=== PATIENT | female | born 1955 | race Caucasian/White ===

== ENCOUNTER → 2021-02-25 09:39 | Outpatient (CLI) | payer OTHER, SELFPAY ==
--- NOTE | ~2021-02-25 | XR_ITS ---
EXAMINATION: XR chest 2V DATE: 02/25/2021 09:57 INDICATION: Chronic obstructive pulmonary disease. Wheezing and cough. TECHNIQUE: Frontal and lateral views of the chest were obtained. COMPARISON: Chest 2 views 01/31/2015 FINDINGS: There is mild atelectasis in left lower lung zone. There is mild scarring at left lung apex . No pleural effusion or pneumothorax. The heart size is normal. IMPRESSION: 1. Mild atelectasis in left lower lung zone and mild scarring at left lung apex. Reviewed, dictated and finalized at location A. IMPRESSION: 1. Mild atelectasis in left lower lung zone and mild scarring at left lung apex .
== END ==
PROVIDERS: PCP Family Medicine; Visit Provider Family Medicine
DX: J44.9 Chronic obstructive pulmonary disease, unspecified (principal); R06.02 Shortness of breath; J98.11 Atelectasis
CPT/HCPCS: 71046

== ENCOUNTER 2021-03-02 08:08 | Outpatient (CLI) | payer OTHER, SELFPAY ==
--- NOTE | 2021-03-02 16:09 | P.PCNPFT_ITS ---
PFT Interpretation This is a pulmonary function test with pre and post-bronchodilator spirometry, plethysmography and diffusing capacity. The test was performed and results interpreted in accordance with the 2019 and 2005 ATS/ERS Task Force guidelines respectively using the Global Lung Function Initiative-2012 reference equations. Patient demonstrated good effort and c ooperation. Reproducibility criteria were met. The quality of the pre bronchodilator spirometry maneuver was Grade A and post bronchodilator spirometry maneuver was Grade A. Findings: Spirometry: There is decreased maximal expiratory airflow at all lung volumes with a mildly concave expiratory flow tracing. The contour of the inspiratory flow tracing is normal. The pre bronchodilator FVC is 2.72 L, 92% predicted. The pre bronchodilator FEV1 is 1.87 L, 80% predicted. The FEV1: FVC ratio is 69%. The post bronchodilator FVC is 2.83 L, representing a 4% increase. The post bronchodilator FEV1 is 1.96 L, representing a 5% increase. Plethysmography: The total lung capacity is 5.40 L, 110% predicted. Functional residual capacity is 3.15 L, 114% predicted. The residual volume is 2.67 L, 134% predicted. Diffusing capacity: The absolute diffusion capacity is 15.9, 76% predicted. The diffusing capacity corrected for alveolar volume is 3.72, 84% predicted. When compared to the prior pulmonary function test in our laboratory on 01/31/2015 in which no bronchodilator was given. The FEV1 is unchanged from 2.62 L to 2.72 L. The FEV1 is unchanged from 1.91 L to 1.87 L. The total lung capacity is unchanged from 5.34 L to 5.40 L. The functional residual capacity is unchanged from 3.29 L to 3.15 L. The residual volume is unchanged from 2.72 L to 2.67 L. The absolute diffusion capacity is unchanged from 15.0 to 15.9. The diffusing capacity corrected for alveolar volume is unchanged from 3.31 to 3.72. Impression: There is a mild obstructive abnormality with a normal FEV1 and without a significant improvement after inhaling a single dose of albuterol. The lung volumes are normal. The diffusing capacity is normal. In comparison to the prior pulmonary function tests on 01/31/2015 there has been no significant change in FVC, FEV1, total lung capacity, functional residual capacity, residual volume, absolute diffusion capacity or diffusing capacity corrected for alveolar volume. Clinical correlation is recommended. PFT Procedure Performed PFT Procedure Performed Spirometry with Pre/Post Bronchodilator Plethysmography (Lung Vol) Diffusing Cap (DLCO)
== END 2021-03-02 08:09 | disposition home or self-care (01) ==
PROVIDERS: PCP Family Medicine; Visit Provider Family Medicine
DX: J44.9 Chronic obstructive pulmonary disease, unspecified (principal); F17.210 Nicotine dependence, cigarettes, uncomplicated; R94.2 Abnormal results of pulmonary function studies
CPT/HCPCS: 94060; 94726; 94729

== ENCOUNTER 2022-06-23 13:50 | Outpatient (CLI) | payer MEDICARE, SELFPAY ==
--- NOTE | ~2022-06-23 | US_ITS ---
US arterial ankle brachial ind INDICATION: High cholesterol. Smoking history. Numbness in the legs. TECHNIQUE: Segmental pressures and plethysmographic and Doppler waveforms of the brachial and lower e xtremity arteries were obtained. COMPARISON: None. FINDINGS: Right and left brachial artery pressures of 119 mm Hg and 119 mm Hg, respectively, are concordant (no rmal difference <= 30 mmHg). The right ankle-brachial index (ROSA MARIA) is 1.09 (normal >= 0.9-1.0). The right great toe-brachial index (TBI) is 0.69 (normal >= 0.60). The left ROSA MARIA is 1.07. The left TBI is 0.45. IMPRESSION: 1. Diminished left toe brachial index measuring 0.45, consistent with peripheral arterial disease. 2: Normal right ankle and toe brachial indices. Reviewed, dictated and finalized at location A. IMPRESSION: 1. Diminished left toe brachial index measuring 0.45, consistent with periphera l arterial disease. 2: Normal right ankle and toe brachial indices.
== END 2022-06-23 13:51 | disposition home or self-care (01) ==
PROVIDERS: PCP Family Medicine; Visit Provider Family Medicine
DX: R09.89 Other specified symptoms and signs involving the circulatory and respiratory systems (principal); R29.898 Other symptoms and signs involving the musculoskeletal system; F17.200 Nicotine dependence, unspecified, uncomplicated
CPT/HCPCS: 93922

== ENCOUNTER 2022-08-10 08:53 | Outpatient (CLI) | payer MEDICARE, SELFPAY ==
--- NOTE | 2022-08-10 11:00 | NEURO_ITS ---
Impression: # Complains of numbness and cramps in lower extremities. # Normal nerve conduction study including F-waves. # Needle/EMG exam abnormal with neurogenic changes in the muscles though no fibrillation. # Clinical correlation recommended, findings suggestive of higher involvement. Nerve Conduction Studies Anti Sensory Summary Table Stim Site NR Peak (ms) P-T Amp (?V) Site1 Site2 Delta-P (ms) Dist (cm) Nish (m/s) Left Sup Fibular Anti Sensory (Ant Lat Mall) 14 cm 3.8 8.4 14 cm Ant Lat Mall 3.8 16.0 42 Right Sup Fibular Anti Sensory (Ant Lat Mall) 14 cm 4.0 3.8 14 cm Ant Lat Mall 4.0 16.0 40 Left Sural Anti Sensory (Lat Mall) Calf 3.9 8.7 Calf Lat Mall 3.9 16.0 41 Right Sural Anti Sensory (Lat Mall) Calf 4.3 6.3 Calf Lat Mall 4.3 16.0 37 Motor Summary Table Stim Site NR Onset (ms) O-P Amp (mV) Site1 Site2 Delta-0 (ms) Dist (cm) Nish (m/s) Left Peroneal Motor (Vastus Med) Ankle 5.0 0.4 Popit Ankle 7.6 38.0 50 Popit 12.6 0.4 Right Peroneal Motor (Vastus Med) Ankle 4.2 0.6 Popit Ankle 8.6 37.0 43 Popit 12.8 0.4 Left Tibial Motor (Abd Gonzalez Brev) Ankle 4.7 1.7 Knee Ankle 8.8 41.0 47 Knee 13.5 1.2 Right Tibial Motor (Abd Gonzalez Brev) Ankle 4.9 1.8 Knee Ankle 8.7 39.0 45 Knee 13.6 1.6 F Wave Studies NR F-Lat (ms) L-R F-Lat (ms) Left Peroneal (Mrkrs) (EDB) 49.94 0.82 Right Peroneal (Mrkrs) Run #1 (EDB) 40.00 9.94 Right Peroneal (Mrkrs) Run #2 (EDB) 50.76 0.82 Left Tibial (Mrkrs) (Abd Hallucis) 51.47 0.52 Right Tibial (Mrkrs) (Abd Hallucis) 50.95 0.52 EMG Side Muscle Nerve Root Ins Act Fibs Amp Dur Recrt Comment Right AntTibialis Dp Br Fibular L4-5 Nml Nml Nml >12ms Reduced Right Gastroc Tibial S1-2 Nml Nml Nml >12ms Reduced Right Fibularis Long Sup Br Fibular L5-S1 Nml Nml Nml Nml Nml Right Flex Dig Long Tibial L5-S2 Nml Nml Nml Nml Nml Right Ext Dig Brev Dp Br Fibular L5, S1 Nml Nml Nml >12ms Reduced Left AntTibialis Dp Br Fibular L4-5 Nml Nml Nml >12ms Reduced Left Gastroc Tibial S1-2 Nml Nml Nml >12ms Reduced Left Fibularis Long Sup Br Fibular L5-S1 Nml Nml Nml Nml Nml Left Flex Dig Long Tibial L5-S2 Nml Nml Nml Nml Nml Left Ext Dig Brev Dp Br Fibular L5, S1 Nml Nml Nml >12ms Reduced Right QuadratusFem QuadFemoris L4-5, S1 Nml Nml Nml >12ms Reduced Left QuadratusFem QuadFemoris L4-5, S1 Nml Nml Nml >12ms Reduced MTDD
== END 2022-08-10 08:54 | disposition home or self-care (01) ==
PROVIDERS: PCP Family Medicine; Visit Provider Family Medicine
DX: G62.9 Polyneuropathy, unspecified (principal)
CPT/HCPCS: 95886; 95910

== ENCOUNTER → 2022-08-11 09:32 | Outpatient (CLI) | payer MEDICARE, SELFPAY ==
--- NOTE | ~2022-08-11 | XR_ITS ---
XR lumbar spine min 4V DATE: 08/11/2022 09:46 INDICATION: Unsteady gait, paresthesia TECHNIQUE: AP, lateral, coned lateral lumbosacral and bilateral oblique views COMPARISON: None FINDINGS: . There is mild degenerative disc disease at the lumbar interspaces and mild/moderate degen erative disc disease at L5-S1. No lumbar spine fracture or bone destruction is evident. The lumbar pedicles are intact. The sacroili ac joints appear normal. IMPRESSION: Grade 2 anterolisthesis at L5-S1 Mild to moderate degenerative disc disease Reviewed, dictated and finalized at location B.
== END ==
PROVIDERS: PCP Family Medicine; Visit Provider Family Medicine
DX: G95.9 Disease of spinal cord, unspecified (principal); M51.37 Other intervertebral disc degeneration, lumbosacral region
CPT/HCPCS: 72110

== ENCOUNTER 2022-08-21 12:46 | Outpatient (CLI) | payer MEDICARE, SELFPAY ==
--- NOTE | ~2022-08-21 | MR_ITS ---
EXAMINATION: MR lumbar spine wo con DATE: 08/21/2022 13:27 INDICATION: Bilateral leg weakness. Bilateral foot drop. TECHNIQUE: Magnetic resonance imaging (MRI) of the lumbar spine was performed without intravenous con trast. Sequences included sagittal T2-weighted FSE, sagittal T2-weighted FS FSE, sagittal T1-weighted FSE, and axial T2-weighted FSE. COMPARISON: Lumbar spine radiographs 08/11/2022 FINDINGS: There is 6 degrees levocurvature of lumbar spine. There is 7 mm anterolisthesis of L5 on S1 . Vertebral body heights are normal. There is mildly decreased disc height at L4-L5 and moderately de creased disc height at L5-S1 with endplate remodeling. The distal spinal cord signal intensity is nor mal. The conus medullaris is at L1. The following disc levels are specifically discussed: L1-L2: There is a central protrusion. There is mild bilateral facet joint osteoarthritis. There is no neural foraminal stenosis. There is mild central canal stenosis. L2-L3: The disc is bulging and has an annular fissure. There is mild bilateral facet joint osteoarthr itis. There is no neural foraminal stenosis. There is mild central canal stenosis. L3-L4: The disc does not extend beyond the endplate margin. There is moderate right and mild left fac et joint osteoarthritis. There is no neural foraminal stenosis. There is no central canal stenosis. L4-L5: The disc is bulging. There is severe bilateral facet joint osteoarthritis. There is mild bilat eral neural foraminal stenosis. There is mild central canal stenosis. L5-S1: The disc does not extend beyond the endplate margins. There is severe bilateral facet joint os teoarthritis. There is mild bilateral neural foraminal stenosis. There is no central canal stenosis. IMPRESSION: 1. Moderate lower lumbar spondylosis. Reviewed, dictated and finalized at location B.
== END 2022-08-21 12:47 | disposition home or self-care (01) ==
PROVIDERS: PCP Family Medicine; Visit Provider Family Medicine
DX: G95.9 Disease of spinal cord, unspecified (principal); M47.896 Other spondylosis, lumbar region
CPT/HCPCS: 72148

== ENCOUNTER → 2023-02-01 09:49 | Outpatient (CLI) | payer MEDICARE, SELFPAY ==
--- NOTE | ~2023-02-01 | XR_ITS ---
EXAMINATION: XR toe 5th LT min 2V DATE: 02/01/2023 10:03 INDICATION: Left fifth toe injury. TECHNIQUE: 4 views of left fifth toe were obtained. COMPARISON: None. FINDINGS: Bone alignment is normal. No acute fracture. There is mild osteoarthritis of fifth distal i nterphalangeal joint IMPRESSION: 1. No acute fracture. Reviewed, dictated and finalized at location A. IMPRESSION: 1. No acute fracture.
== END ==
PROVIDERS: PCP Family Medicine; Visit Provider Nurse Practitioner Family
DX: L03.032 Cellulitis of left toe (principal)
CPT/HCPCS: 73660

== ENCOUNTER 2024-10-04 11:37 | Outpatient (CLI) | payer MEDICARE, SELFPAY ==
--- NOTE | ~2024-10-04 | XR_ITS ---
Right Shoulder Technique: AP and scapular Y views were obtained. Clinical History: Pain Findings: No fracture or dislocation is seen. Osseous alignment is anatomic. The glenohumeral and acr omioclavicular joint spaces are preserved. Soft tissues are unremarkable. Impression: Unremarkable right shoulder radiographs. Reviewed, dictated and finalized at [facility]. AL SHOE INSPECTOR Impression: Unremarkable right shoulder radiographs.
== END 2024-10-04 11:38 | disposition home or self-care (01) ==
LOC: GOSHIMG 11:39
PROVIDERS: PCP Family Medicine; Visit Provider Family Medicine
DX: M25.511 Pain in right shoulder (principal)
CPT/HCPCS: 73030

== ENCOUNTER 2025-07-26 02:36 | Day surgery (SDC) | payer MEDICARE, SELFPAY ==
[2025-07-15 12:58] VITALS: BMI 26.2
--- OUTSIDE RECORDS SUMMARY | 2025-07-26 02:39 | XMS_ITS | Clinical Summary ---
Author Organization [facility] Address [address] [place] [address] Care Team Providers Care Fence Setter Name Role Phone Unavailable Primary Care Provider Unavailabl e Social History Tobacco Use Types Packs/Day Years Used Date Smoking Tobacco: Never Assessed Comments Unknown Sex and Gender Information Value Date Recorded Sex Assigned at Not on file Legal Sex Female 7:23 PM EXTR[employer] REPAIR[employer] Gender Identity Not on file Sexual Orientation Not on file Plan of Treatment Health Maintenance Due Date Last Done Comments Colorectal Cancer Screening Colonoscopy (10 Years) 1957 Hepatitis C 1975 DTaP, Tdap and Td Vaccines ( 1 - Tdap) 1976 Mammogram Screening 1997 Pneumococcal Vaccine: 50+ Ye ars (1 of 1 - PCV) 2007 Zoster Vaccines (1 of 2) 2007 Dexa Scan (General) 2022 COVID-19 Vaccine ( - 2023-2 5 season) 2024 RSV Immunization or 60+ Years (1 - 1-dose 75+ series) 2032 Meningococcal B Vaccine Aged Out No l onger eligible based on patient's age to complete this topic Meningococcal Vaccine Aged Out No gustavo eusebia eligible based on patient's age to complete this topic RSV Immunizations Under 20 Months Aged Out No longer eligible based on patient's age to complete this topic
--- OUTSIDE RECORDS SUMMARY | 2025-07-26 02:39 | XMS_ITS | Clinical Summary ---
Author Organization [facility] [employer] Address [address] [place] [address] Care Team Providers Care Director Of Front Office Name Role Phone Cory Turner MD Primary Care Provider [phone]- [phone] Source Comments [facility] [employer],non-owned Affiliates and Associated Physician Practices is amultiple site organization consisting of ambulatory clinics and hospital sitesin [place], [place], [place] and [place]. This disclosure is being madepursuant to the Care Everywhere program and may not contain all information available regarding this patient. Last updated 18.[facility] [employer] Allergies Active Allergy Reactions Criticality Noted Date Comments Cephalosporins 05/02/2017 Medications * Be aware that medications may not be up to date on this document. Alwaysverify current medications with the patient. benzonatate (TESSALON) 200 MG capsuleIndicatio ns:Acute upper respiratory infection Take 1 Cap by mouth 3 times daily as needed for Cough 30 Cap 05/02/2017 Active Social History Tobacco Use Types Packs/Day Years Used Date Smoking Tobacco: Former Comments Unknown Sex and Gender Information Value Date Recorded Sex Assigned at Not on file Legal Sex Female 10:41 AM CDT Gender Identity Not on file Sexual Orientation Not on file Last Filed Vital Signs Vital Sign Reading Time Taken Comments Blood Pressure 130/76 05/02/2017 12:04 PM CDT Pulse 89 05/02/2017 12:04 PM CDT Temperature 37.1 C (98.7 F) 05/02/2017 12:04 PM CDT Respiratory Rate 16 05/02/2017 12:04 PM CDT Oxygen Saturation - - Inhaled Oxygen Concentration - - Weight 66.2 kg (146 lb) 05/02/2017 12:04 PM CDT Height 160 cm (5' 3) 05/02/2017 12:04 PM CDT Body Mass Index 25.86 05/02/2017 12:04 PM CDT Plan of Treatment Health Maintenance Due Date Last Done Comments BONE DENSITY TESTING 1957 COLOGUARD (AGES 45-75) - COL ON CA SCREENING 1957 COLON MONITORING 1957 COLONOSCOPY - COLON CA SCREENING 1957 CT COLONOGRAPHY - COLON CA SCREENING 1957 Colorectal Cancer Screening 1957 FIT - COLON CA SCREENING 1957 FLEX SIG - COLON CA SCREENING 1957 LIPID TESTING 1957 MAMMOGRAM 1957 HEPATITIS C SCREENING 06/30/1975 DTAP/TDAP/TD VACCINES (1 - Tdap) 1976 PNEUMOCOCCAL VACCINE 50+ (1 of 1 - PCV) 2007 ZOSTER VACCINE (1 of 2) 2007 DEPRESSION SCREENING 11/21/2024 COVID-19 VACCINE (1 - 2023-2 5 season) 2025 INFLUENZA VACCINE (#1) 2025 Respiratory Syncytial Virus (RSV) Vaccine Pt: or over 60 yrs (1 - 1-dose 75+ series) 2032 HEPATITIS B VACCINE Aged Out No longe r eligible based on patient's age to complete this topic HIB VACCINE Aged Out No longer eligi ble based on patient's age to complete this topic HPV VACCINE Aged Out No longer eligi ble based on patient's age to complete this topic MENINGOCOCCAL (Group B) VACC INE SHARED DECISION-MAKING Aged Out No longer eligibl e based on patient's age to complete this topic MENINGOCOCCAL GROUPS A/C/Y/W VACCINE Aged Out No longer eligible b ased on patient's age to complete this topic Insurance Care Teams Director Of Front Office Relationship Specialty Start Date End Date Cory Turner MD [address] [place] [address] [phone] PCP - General Family Medicine 05/02/17
--- OUTSIDE RECORDS SUMMARY | 2025-07-26 02:39 | XMS_ITS | Clinical Summary ---
Author Organization [facility] Address [address] [place] [address] Phone Care Team Providers Care Decorator Store Name Role Phone Cory Turner MD Primary Care Provider [phone]- [phone] Allergies Active Allergy Reactions Criticality Noted Date Comments Cephalexin Anaphylaxis High 06/27/2016 Cephalosporins Hives,Unknown Medium 05/02/2017 Medications zolpidem (AMBIEN) 10 MG Tablet Take 10 mg by mouth nightly as needed. Active fluticasone (FLONASE) 50 MCG/ACT SuspensionIndic ations:Non-recu rrent acute serous otitis media of both ears 1-2 Sprays by Nasal route daily. Use in each nostril as directed. 15.8 mL 1 Active Additional Information Patient not taking.Reported on 04/13/2022 venlafaxine (EFFEXOR-XR) 37.5 MG CAPSULE SR 24 HR 2 Active Anoro Ellipta 62.5-25 MCG/INH AEROSOL POWDER, BREATH ACTIVATED 2 Active alendronate (FOSAMAX) 35 MG Tablet 2 Active triamcinolone (KENALOG) 0.1 % Cream 2 Active Multiple Vitamin (MULTI-VITAMIN PO) Take by mouth daily. Active CALCIUM PO Take by mouth daily. Active fluticasone (FLONASE) 50 MCG/ACT SuspensionIndic ations:Head congestion 1-2 Sprays by Nasal route daily. Use in each nostril as directed. 16 g 2 Active Additional Information Patient not taking.Reported on 01/20/2023 methylPREDNISol one (Medrol) 4 MG Tablet Therapy PackIndications :Bronchitis Use as per instructions on package. 21 Tablet 2 Active Additional Information Patient not taking.Reported on 01/20/2023 albuterol (ProAir HFA) 108 (90 Base) MCG/ACT Aerosol SolutionIndicat ions:Bronchitis take 2 Puffs by inhalation every 4 hours as needed for Wheezing or Cough. 18 g 2 Active Additional Information Patient not taking.Reported on 01/20/2023 busPIRone (BUSPAR) 10 MG Tablet 3 Active riluzole (RILUTEK) 50 MG Tablet TAKE 1 TABLET BY MOUTH EVERY 12 HOURS 3 Active Relyvrio 3-1 g Pack 3 Active atorvastatin (LIPITOR) 40 MG Tablet Take 1 Tablet by mouth daily. 90 Tablet 3 4 Active Active Problems No known active problems Immunizations Immunization Administration Dates Next Due Hepatitis A Vaccine 02/05/2021 Influenza Vaccine, Quadrivalent, PF 11/2021,08/12/2020,08/23/2018,2016 Influenza, Injectable, Mdck,quadrivalent,with Preservative 09/11/2019 Influenza, Seasonal, Injecta ble, Undefined 10/27/2015,10/02/2014,08/22/2013 Pneumococcal Vaccine - 13 Valent 12/08/2017 TDAP Vaccine 12/08/2017 Social History Tobacco Use Types Packs/Day Years Used Date Smoking Tobacco: Every Day Cigarettes 0.5 40 Smokeless Tobacco: Never Tobacco Cessation:Ready to Q uit: Not Asked; Counseling Given: Not Answered Alcohol Use Standard Drinks/Week Comments Not Currently 0 (1 standard drink = 0.6 oz pur e alcohol) social Comments No Sex and Gender Information Value Date Recorded Sex Assigned at Not on file Legal Sex Female 6:15 PM CDT Gender Identity Not on file Sexual Orientation Not on file Last Filed Vital Signs Vital Sign Reading Time Taken Comments Blood Pressure 148/72 09/24/2023 2:43 PM CDT Pulse 110 09/24/2023 2:43 PM CDT Temperature 36.7 C (98.1 F) 09/24/2023 2:43 PM CDT Respiratory Rate 16 09/24/2023 2:43 PM CDT Oxygen Saturation 93% 09/24/2023 2:43 PM CDT Inhaled Oxygen Concentration - - Weight 62.6 kg (138 lb) 02/28/2023 1:32 PM CDT Height 160 cm (5' 3) 02/28/2023 1:32 PM CDT Body Mass Index 24.45 02/28/2023 1:32 PM CDT Plan of Treatment Health Maintenance Due Date Last Done Comments DEXA Bone Density 1957 Hepatitis C Virus (HCV) Screening 1957 Mammogram 1957 Cologuard 2002 Colonoscopy 2002 Colorectal Cancer Screening 2002 Immunochemical Fecal Occult Blood 2002 Zoster Immunization (1 of 2) 2007 Pneumococcal Immunization (50+ years) (2 of 2 - PPSV23, PCV20, or PCV21) 02/02/2018 12/08/2017 Influenza Immunization (#1) 2025 02/0 11/2021, 08/12/2020, 09/11/2019, Additional history exists SARS-COV-2 Immunization ( season) 2025 12/22/2021, 01/12/2021 Td Immunization Every 10 Years (Adults With 1 Tdap) 12/08/2027 12/08/2017 Respiratory Syncytial Virus (RSV) Immunization (Adult) (1 - 1-dose 75+ series) 2032 DTaP/Tdap/Td Immunization Discontinued 12/08/2017 Pneumococcal Immunization Combined Discontinued 12/08/2017 Hepatitis B Immunization Aged Out No longer eligible based on patient's age to complete this topic Human Papillomavirus (HPV) Immunization Aged Out No longer eligible based on patient's age to complete this topic Meningococcal Immunization (ACWY) Aged Out No longer eligible based on patient's age to complete this topic Rotavirus Immunization Aged Out No lo nger eligible based on patient's age to complete this topic Insurance MEDICARE C [employer] Care Teams Decorator Store Relationship Specialty Start Date End Date Cory Turner MD [address] [place] [id number] PCP - General Family Medicine 06/27/16
--- OUTSIDE RECORDS SUMMARY | 2025-07-26 02:39 | XMS_ITS | Clinical Summary ---
Author Organization [facility] Office Center Address [address] [place] [address] Care Team Providers Care Bow Rehairer Name Role Phone Gregory Browning MD Unavailable [phone] Yadira Turner MD Primary Care Provider + Allergies Active Allergy Reactions Criticality Noted Date Comments Cephalosporins Unknown 05/02/2017 Medications alendronate (FOSAMAX) 35 mg tablet 03/01/2022 Active umeclidinium-vi lanteroL (Anoro Ellipta) 62.5-25 mcg/actuation blister with device 01/22/2022 Active zolpidem (AMBIEN) 10 mg tablet zolpidem 10 mg tablet Active atorvastatin (LIPITOR) 10 mg tablet Take 1 tablet (10 mg total) by mouth daily Active busPIRone (BUSPAR) 10 mg tablet 02/01/2023 Active clindamycin (CLEOCIN) 300 mg capsule Take 1 capsule (300 mg total) by mouth 3 (three) times a day 02/10/2023 Active mupirocin (BACTROBAN) 2 % ointment 02/01/2023 Active sod phenylbutyrat-t aurursodiol (Relyvrio) 3-1 gram powder in packetIndicatio ns:ALS (amyotrophic lateral sclerosis) (HCC) Take 1 packet by mouth 2 (two) times a day 60 packet 11 12/22/2023 Active hydroCHLOROthia zide (HYDRODIURIL) 12.5 mg tablet TAKE 1 TABLET BY MOUTH EVERY DAY NEEDED FOR SWELLING 12/19/2023 Active venlafaxine XR (EFFEXOR-XR) 75 mg 24 hr capsuleIndicati ons:ALS (amyotrophic lateral sclerosis) (HCC) TAKE 1 CAPSULE BY MOUTH EVERY DAY 90 capsule 3 12/05/2024 Active Trelegy Ellipta 100-62.5-25 mcg inhaler 1 puff daily 03/17/2025 Active gabapentin (NEURONTIN) 100 mg capsuleIndicati ons:Essential Tremor Take 2 capsules (200 mg total) by mouth 3 (three) times a day 540 capsule 3 06/17/2025 06/17/20 26 Active riluzole (RILUTEK) 50 mg tabletIndicatio ns:ALS (amyotrophic lateral sclerosis) (HCC) TAKE 1 TABLET BY MOUTH EVERY 12 HOURS. 180 tablet 2 06/24/2025 Active Hospital, Clinic, or Other Facility Administered Medication Ordered Dose Route Frequency Start Date End Date Status [facility] pridopidine (/EAP2) capsule 45 mgIndications:Patient in clinical research study 45 mg oral Daily 07/30/2024 Active [facility] pridopidine (/EAP2) capsule 45 mgIndications:Patient in clinical research study 45 mg oral 2 times daily 02/26/2025 08/13/2025 Active Active Problems Problem Noted Date Diagnosed Date Venous congestion 12/30/2023 Assessment & Plan (12/30/2023 10:44 AM AUTO MACHINIST): Impression: Patient has discoloration to the toes of bilateral feet while in dependent position. Patient underwent ROSA MARIA and was found to have triphasic waveforms to bilateral lower extremities. Plan: Reassured patient she is not at risk for limb threatening with venous congestion. -recommend patient to elevate lower extremities to assist with blood return. -patient to follow-up on an as-needed basis. Other hyperlipidemia 12/30/2023 Assessment & Plan (12/30/2023 10:45 AM AUTO MACHINIST): Impression: Chronic and stable. Plan: Continue atorvastatin. Primary hypertension 12/30/2023 Assessment & Plan (12/30/2023 10:44 AM AUTO MACHINIST): Impression: Chronic and stable. Plan: Continue hydrochlorothiazide ALS (amyotrophic lateral sclerosis) 12/30/2023 Assessment & Plan (12/30/2023 10:45 AM AUTO MACHINIST): Impression: Patient was recently diagnosed with ALS. She has foot drop to bilateral feet and utilizes braces bilaterally. Plan: Continue recommendations as per PCP. Pain in both lower legs 07/23/2022 Assessment & Plan (07/23/2022 1:04 PM CDT): Impression: Patient with vague complaint of lower extremity pain, unsteady gait and weakness not consistent with an underlying arterial etiology. Arterial Doppler studies revealed normal blood flow both lower extremities. Plan: No further vascular surgical workup per intervention needed at this time. Recommend follow-up with her PCP to further discuss her complaint. Patient to follow up on as-needed basis. Abdominal pain 07/07/2022 Weakness Encounters Date Type Department Care Team Description 06/10/2025 Orders Only [facility] Scanning, Provider from Last 3 Months Immunizations Immunization Administration Dates Next Due Hep A, Adult 02/05/2021 Influenza, Quadrivalent, Cintia l Culture-based MDCK, Antibiotic Free, Intramuscular 09/11/2019 Influenza, Quadrivalent, Spl it, Preservative Free, Intramuscular 12/22/2021,08/12/2020,08/23/2018,09/14 Influenza, Trivalent, IM (MDV) 10/27/2015,2013,08/22/2013 Pfizer SARS-CoV-2 Monovalent Vaccination (12+ Yrs) PURPLE 01/12/2021 Pneumococcal Conjugate PCV 13 12/08/2017 Tdap 12/08/2017 Surgical History Surgery Date Site/Laterality Comments NEPHRECTOMY Medical History Medical History Date Comments Arthritis Depression Family History Medical History Relation Name Comments Heart disease Father Hypertension Father Maligant neoplasm of prostate Father Parkinsonism Father Diabetes Mother Hypertension Mother Relation Name Status Comments Father Mother Social History Tobacco Use Types Packs/Day Years Used Date Smoking Tobacco: Every Day Cigarettes Smokeless Tobacco: Never Tobacco Cessation:Ready to Q uit: No; Counseling Given: Yes Comments Unknown Sex and Gender Information Value Date Recorded Sex Assigned at Not on file Legal Sex Female 8:36 AM AUTO MACHINIST Gender Identity Female 11/23/2023 9:59 PM AUTO MACHINIST Sexual Orientation Straight 11/23/2023 9: 59 PM AUTO MACHINIST Obstetrics History Last Filed Vital Signs Vital Sign Reading Time Taken Comments Blood Pressure 122/54 03/28/2025 4:00 PM CDT Pulse 97 03/28/2025 4:00 PM CDT Temperature - - Respiratory Rate - - Oxygen Saturation - - Inhaled Oxygen Concentration - - Weight 65.8 kg (145 lb) 03/28/2025 4:00 PM CDT Height 157.5 cm (5' 2) 03/28/2025 4:00 PM CDT Body Mass Index 26.52 03/28/2025 4:00 PM CDT Plan of Treatment Health Maintenance Due Date Last Done Comments Breast Cancer Screening-Mammogram 1955 Colon Cancer Screening-Colonoscopy 1955 Depression Screening 1955 Fall Risk Assessment 1955 Hepatitis C Screening 1955 Osteoporosis Screening-Bone Density Scan 1955 Hepatitis B Screening 1975 Zoster Vaccine (1 of 2) 2007 Pneumococcal vaccine 65+ (2 of 2 - PPSV23, PCV20, or PCV21) 02/02/2018 12/08/2017 Well Visit 65+ 2022 Covid-19 Vaccine (3 - 2023-2 5 season) 2024 12/22/2021, 01/12/2021 Influenza Vaccine (#1) 2025 , 08/12/2020, 09/11/2019, Additional history exists DTaP/Tdap/Td Vaccine (2 - Td or Tdap) 12/08/2027 12/08/2017 Procedures Procedure Name Priority Date/Time Associated Diagnosis Comments PULMONARY - RESULT SCAN 06/10/2025 4:58 PM CDT from Last 3 Months Results * PULMONARY - RESULT SCAN (06/10/2025 4:58 PM CDT) Anatomical Region Laterality Modality Other us Provider Scanning Final Result from Last [address] [facility] [employer] CHOICE MEDICARE PPO Care Teams Bow Rehairer Relationship Specialty Start Date End Date Yadira Turner MD [address] [facility] [address] [place] [address] PCP - General Family Medicine 05/12/23 Gregory Browning MD [address] [facility] [address] [place] [address] Surgeon Vascular Surgery 07/16/22
[2025-07-26 09:50] VITALS: BP 107/70; PULSE 95; RESP 18; TEMP 36.8; O2SAT 95
--- NOTE | 2025-07-26 09:59 | P.PNAN_ITS ---
Anes - Initial Pre Proc Eval Procedure: Operation Date: 07/26/25 11:30 Proposed Procedures p Diagnostic Colonoscopy - Chandan Lala MD Date/Time: 07/26/25 09:59 Surgeon: Chandan Lala MD Pre Op Diagnosis: Other fecal abnormalities Patient Data Age: 70 Gender: F Height: 1.57 m Weight: 64.5 kg Last Vital Signs Temp 36.8 C 07/26/25 09:50 Pulse 95 07/26/25 09:50 Resp 18 07/26/25 09:50 BP 107/70 07/26/25 09:50 Pulse Ox 95 07/26/25 09:50 O2 Del Method Room Air 07/26/25 09:50 Allergies Allergy/AdvReac Type Severity Reaction Status Date / Time cephalexin Allergy Unknown Skin Verified 07/26/25 09:48 Reaction Home Medications ?Medication ?Instructions ?Recorded ?Confirmed ?Type aspirin 81 mg tablet,delayed 81 mg PO DAILY 09/16/22 0 07/26/25 History release venlafaxine 37.5 mg 75 mg PO .COMPLEX 02/01/23 0 07/26/25 History capsule,extended release 24 hr riluzole 50 mg tablet 50 mg PO BID 10/07/23 History gabapentin 100 mg capsule 200 mg PO TID 12/19/2307/26 History triamcinolone acetonide 0.1 % 1 applic topical BID #80 grams 02/28/24 07/15/25 Rx topical cream albuterol sulfate 90 mcg/actuation 2 inh inhalation Q4 H PRN shortness 11/27/24 07/15/25 Rx aerosol inhaler of breath or wheezing #8.5 g maximo zolpidem 10 mg tablet 10 mg PO QHS #90 tabs 07/26/25 Rx atorvastatin 40 mg tablet (Lipitor) 40 mg PO DAILY #90 tabs 03/04/25 07/26/25 Rx fluticasone fur. 100 mcg-umeclid 1 inh inhalation ROWAN Y #60 ea 04/16/25 07/26/25 Rx 62.5 mcg-vilant 25 mcg inhalat.powder (Trelegy Ellipta) hydrochlorothiazide 12.5 mg tablet See Rx Instructions .Route .COMPLEX 07/15/25 07/26/25 History Patient hx anesthesia problems: none Family hx anesthesia problems: none Results Review: All pre-operative results and documents have been reviewed as part of the pre- operative evaluation. [facility] Past Medical History Medical History (Updated 07/25/25 @ 16:00 by Adelso Thomas DO) Chronic obstructive pulmonary disease, unspecified 03/02/21 PFT: There is a mild obstructive abnormality with a normal FEV1 and without a significant improvement after inhaling a single dose of albuterol. In comparison to the prior pulmonary function tests on 01/31/2015 there has been no significant change Diminished pulses in lower extremity 8.3.22 Diminished left toe brachial index measuring 0.45, consistent with peripheral arterial disease. Arthritis Incisional hernia History of sinus problem Anaphylactic reaction due to adverse effect of correct drug or medicament properly administered, sequela Scoliosis (and kyphoscoliosis), idiopathic Umbilical hernia without mention of obstruction or gangrene Surgical History Surgical History H/O left nephrectomy Family History Family History Father Hypertension Malignant neoplasm of prostate Family history of cardiovascular disease Family history of Parkinson's disease Family history of heart disease in male family member before age 55 Mother Hypertension Family history of dementia Diabetes mellitus Cerebrovascular accident Grandparent Diabetes mellitus Sibling Diabetes mellitus Family history of lupus erythematosus Other Family history of Alzheimer's disease Family history of kidney disease Family history of mental disorder Social History Social History Years smoked: 40 Smoking status: Current some day smoker Tobacco type: cigarettes Substance use: never Substance use type: does not use Living arrangements: with family Additional living arrangements comments: with sp Gender identity (if verbalized by the patient): Female Anes - Eval Final PreProcedure Day of Procedure 07/26/25 09:59 Patient weight: overweight Heart: regular rate and rhythm Lungs: clear to auscultation Airway: Mallampati scale class II Neurological: alert and oriented Last oral intake: >/= 8 hours ASA classification: III Emergent: no Anesthetic plan: proceed Anesthesia type and monitoring: general GIVS and standard monitoring Results Review: All pre-operative results and documents have been reviewed as part of the pre- operative evaluation. Informed Consent: The patient's anesthetic plan and its attendant risks and benefits were discussed with the patient/family/POA. Questions were solicited and answers provided to the satisfaction of the patient/family/POA.
[2025-07-26] MEDS: LACTATED RINGERS 1,000 ML 150 ML IV CONT (10:01)
--- NOTE | 2025-07-26 10:17 | PM.HPGS ---
History of Present Illness History of Present Illness Consent: Risks, benefits, and alternatives have been discussed and questions answered. Patient agrees to proceed with procedure. Chief complaint: Other fecal abnormalities Narrative: Javi Kerns is a 70 year old female with + cologuard, last colonoscopy 15 years ago Review of Systems Review of Systems: All systems reviewed & are unremarkable except as noted in HPI and below PMFSH Past Medical History Medical History (Updated 07/25/25 @ 16:00 by Adelso Thomas, ) Chronic obstructive pulmonary disease, unspecified 03/02/21 PFT: There is a mild obstructive abnormality with a normal FEV1 and without a significant improvement after inhaling a single dose of albuterol. In comparison to the prior pulmonary function tests on 01/31/2015 there has been no significant change Diminished pulses in lower extremity 8.3.22 Diminished left toe brachial index measuring 0.45, consistent with peripheral arterial disease. Arthritis Incisional hernia History of sinus problem Anaphylactic reaction due to adverse effect of correct drug or medicament properly administered, sequela Scoliosis (and kyphoscoliosis), idiopathic Umbilical hernia without mention of obstruction or gangrene Surgical History Surgical History H/O left nephrectomy Family History Family History Father Hypertension Malignant neoplasm of prostate Family history of cardiovascular disease Family history of Parkinson's disease Family history of heart disease in male family member before age 55 Mother Hypertension Family history of dementia Diabetes mellitus Cerebrovascular accident Grandparent Diabetes mellitus Sibling Diabetes mellitus Family history of lupus erythematosus Other Family history of Alzheimer's disease Family history of kidney disease Family history of mental disorder Social History Social History Years smoked: 40 Smoking status: Current some day smoker Tobacco type: cigarettes Substance use: never Substance use type: does not use Living arrangements: with family Additional living arrangements comments: with sp Gender identity (if verbalized by the patient): Female Meds Home Medications and Allergies Home Medications ?Medication ?Instructions ?Recorded ?Confirmed ?Type aspirin 81 mg tablet,delayed 81 mg PO DAILY 09/16/22 07/26/25 History release venlafaxine 37.5 mg 75 mg PO .COMPLEX 02/01/23 07/26/25 History capsule,extended release 24 hr riluzole 50 mg tablet 50 mg PO BID 10/07/23 07/26/25 History gabapentin 100 mg capsule 200 mg PO TID 12/19/23 07/26/25 History triamcinolone acetonide 0.1 % 1 applic topical BID #80 grams 02/28/24 07/15/25 Rx topical cream albuterol sulfate 90 mcg/actuation 2 inh inhalation Q4H PRN shortness 11/27/24 07/15/25 Rx aerosol inhaler of breath or wheezing #8.5 grams zolpidem 10 mg tablet 10 mg PO QHS #90 tabs 01/21/25 07/26/25 Rx atorvastatin 40 mg tablet (Lipitor) 40 mg PO DAILY #90 tabs 03/04/25 07/26/25 Rx fluticasone fur. 100 mcg-umeclid 1 inh inhalation DAILY #60 ea 04/16/25 07/26/25 Rx 62.5 mcg-vilant 25 mcg inhalat.powder (Trelegy Ellipta) hydrochlorothiazide 12.5 mg tablet See Rx Instructions .Route .COMPLEX 07/15/25 07/26/25 History Allergies Allergy/AdvReac Type Severity Reaction Status Date / Time cephalexin Allergy Unknown Skin Verified 07/26/25 09:48 Reaction Vital Signs Vital Signs - 24 hr 07/26/25 09:50 Temperature 98.2 F Pulse Rate 95 Respiratory Rate 18 Blood Pressure 107/70 Pulse Oximetry 95 Oxygen Delivery Room Air Exam Const: General: comfortable and no acute distress HENMT: Face/Nose/Sinus: Normal nares present Eyes: General: appearance normal, both eyes and all related structures Neck: Neck: no JVD Resp: Auscultation: clear to auscultation bilaterally Cardio: Rate: regular rate Rhythm: regular rhythm GI: Inspection: non-distended GI Palp: Yes Soft to palpation Skin: General skin exam: normal color Neuro: Speech: normal speech Extrem: General: normal to inspection Psych: Mental Status: mental status grossly normal Assessment and Plan Assessment and plan (1) Positive colorectal cancer screening using Cologuard test: Code(s): R19.5 - Other fecal abnormalities Status: Acute Assessment and Plan: colonoscopy
[2025-07-26 10:56] VITALS: BP 120/58; PULSE 92; RESP 25; O2SAT 95
--- NOTE | 2025-07-26 10:56 | S_PTH ---
PATIENT: Javi Kerns LOC: [facility]#:[id number] AGE/SX: 70/F ROOM: RE07/26/[address]: Chandan Lala MD : 1955 BED: DIS: 07/26/2025 SPEC #: [id number] RECD: 07/26/25 11:30 STATUS: FEDERICO AGUILERA #: [id number] ELKE: 07/26/25 10:[address]: Chandan Lala DEPT: [facility] Surgical RECD BY: Emeli Hanson ENTERED: 07/26/25 11:31 SP TYPE: Surgical OTHR DR: Yadira Turner MD Tissues: A - Colon Polypectomy B - Colon Polypectomy Procedures: Hematoxylin and Eosin Stain Gross and Microscopic Level 4
[2025-07-26 11:06] VITALS: BP 111/72; PULSE 90; RESP 18; O2SAT 96
[2025-07-26 11:16] VITALS: BP 123/64; PULSE 90; RESP 18; O2SAT 98
== END 2025-07-26 11:25 | disposition home or self-care (01) ==
PROVIDERS: PCP Family Medicine; Referring Provider Nurse Practitioner Family; Visit Provider Internal Medicine Gastroenterology
PROC: 0DJD8ZZ Inspection of Lower Intestinal Tract, Via Natural or Artificial Opening Endoscopic (ICD-10-PCS; CPT 45378; principal; 2025-07-26 11:30)
DX: R19.5 Other fecal abnormalities (principal); D12.8 Benign neoplasm of rectum; D12.2 Benign neoplasm of ascending colon; K57.30 Diverticulosis of large intestine without perforation or abscess without bleeding; J44.9 Chronic obstructive pulmonary disease, unspecified; K64.8 Other hemorrhoids; Z90.5 Acquired absence of kidney; Z80.42 Family history of malignant neoplasm of prostate; Z82.49 Family history of ischemic heart disease and other diseases of the circulatory system; Z81.8 Family history of other mental and behavioral disorders; Z72.0 Tobacco use; Z79.82 Long term (current) use of aspirin
CPT/HCPCS: 45385; 88305; J2704; J7120